=== PATIENT | female | born 2000 | race Caucasian/White ===

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

== ENCOUNTER 2020-06-14 12:51 | Emergency (ER) | payer BC ==
[~2020-06-14] VITALS: Ht 149.9 cm; Wt 47.6 kg
[~2020-06-14 12:51] MED LIST changes: +CEFDINIR300 MG PO; +CORTISPORIN OTI10 M2 OTIC
[2020-06-14] MEDS ORDERED: TRAMADOL 50 MG50 MG PO (14:01)
[2020-06-14] MEDS ORDERED: NAPROSYN500 MG PO (14:01)
[2020-06-14 14:19] VITALS: BP 122/50
== END 2020-06-14 14:19 | disposition home or self-care (01) ==
LOC: M.ERS 12:51
DX: M79.644 Pain in right finger(s) (principal); R60.9 Edema, unspecified; J45.909 Unspecified asthma, uncomplicated; G43.909 Migraine, unspecified, not intractable, without status migrainosus; Z88.1 Allergy status to other antibiotic agents; Z88.0 Allergy status to penicillin

== ENCOUNTER 2020-10-25 21:11 | Emergency (ER) | payer BC ==
[~2020-10-25] VITALS: Ht 149.9 cm; Wt 47.2 kg
[~2020-10-25 21:11] MED LIST changes: +NAPROSYN500 MG PO; +TRAMADOL 50 MG50 MG PO
[2020-10-25] MEDS ORDERED: SERTRALINE HCL100 MG PO (21:31)
[2020-10-25] MEDS ORDERED: NORCO5 PO (21:51)
[2020-10-25] MEDS ORDERED: IBUPROFEN 600600 M1 PO (21:51)
[2020-10-25 22:43] VITALS: BP 114/84
== END 2020-10-25 22:44 | disposition home or self-care (01) ==
LOC: M.ERS 21:11
DX: M65.4 Radial styloid tenosynovitis [de Quervain] (principal); G43.909 Migraine, unspecified, not intractable, without status migrainosus; J45.909 Unspecified asthma, uncomplicated; Z90.89 Acquired absence of other organs; Z88.1 Allergy status to other antibiotic agents; Z88.0 Allergy status to penicillin